=== PATIENT | female | born 1960 | race Caucasian/White ===

== ENCOUNTER → 2017-05-24 | Outpatient (CLI) | payer BC | LOC: LAB SHORT 16:45 | DX: N39.0 Urinary tract infection, site not specified (principal); R30.0 Dysuria | CPT/HCPCS: 87077; 87086; 87186 ==

== ENCOUNTER → 2017-11-19 | Outpatient (CLI) | payer BC | END | disposition home or self-care (01) | LOC: LAB 10:21 → LAB SHORT 10:21 | DX: N39.0 Urinary tract infection, site not specified (principal) | CPT/HCPCS: 87086 ==

== ENCOUNTER → 2020-02-16 | Outpatient (CLI) | payer BC, OTHER | END | disposition home or self-care (01) | LOC: LAB EV 15:04 → LAB SHORT 15:04 | DX: J06.9 Acute upper respiratory infection, unspecified (principal); Z20.828 Contact with and (suspected) exposure to other viral communicable diseases | CPT/HCPCS: U0003 ==

== ENCOUNTER → 2020-11-22 | Outpatient (CLI) | payer BC | END | disposition home or self-care (01) | LOC: LAB SHORT 08:10 | DX: D23.61 Other benign neoplasm of skin of right upper limb, including shoulder (principal) | CPT/HCPCS: 88305 ==

== ENCOUNTER 2022-07-17 11:38 | Day surgery (SDC) | payer BC ==
[~2022-07-17] VITALS: Ht 160 cm; Wt 42.9 kg
[2022-07-17] MEDS ORDERED: MELATONIN5 M1 PO (12:00)
[2022-07-17] MEDS ORDERED: ESCI20 PO (12:00)
== END 2022-07-17 14:24 | disposition home or self-care (01) ==
LOC: ORSCSDS 11:38
PROVIDERS: Student in an Organized Health Care Education/Training Program
PROC: 0DBH8ZX Excision of Cecum, Via Natural or Artificial Opening Endoscopic, Diagnostic (ICD-10-PCS; principal; 2022-07-17 13:15)
PROC: 0DBN8ZX Excision of Sigmoid Colon, Via Natural or Artificial Opening Endoscopic, Diagnostic (ICD-10-PCS; principal; 2022-07-17 13:15)
PROC: 0DBK8ZX Excision of Ascending Colon, Via Natural or Artificial Opening Endoscopic, Diagnostic (ICD-10-PCS; principal; 2022-07-17 13:15)
DX: Z12.11 Encounter for screening for malignant neoplasm of colon (principal); D12.2 Benign neoplasm of ascending colon; D12.0 Benign neoplasm of cecum; D12.5 Benign neoplasm of sigmoid colon; K63.5 Polyp of colon; K63.89 Other specified diseases of intestine; J45.909 Unspecified asthma, uncomplicated; Z79.899 Other long term (current) drug therapy
CPT/HCPCS: 88305; J2704; J7120

== ENCOUNTER 2024-06-12 09:19 | Day surgery (SDC) | payer BC ==
[~2024-06-12] VITALS: Ht 160 cm; Wt 45.9 kg
[~2024-06-12 09:19] MED LIST: ALEN70 PO; ESCI20 PO; HRT; MELATONIN5 M1 PO
[2024-06-12] MEDS ORDERED: Bupivacaine 0.5% W/EPI 1:200000 SDV 30 ML Vial ONE (09:42)
[2024-06-12] MEDS ORDERED: Lactated Ringer's 1,000 ML IV ONE ×2 (10:11→13:50)
[2024-06-12] MEDS ORDERED: CeFAZolin Sodium 2,000 MG VIAL ONE ×2 (10:28→11:48)
--- NOTE | 2024-06-12 10:32 | NUR ---
06/12/24 1032 SAI MCMAHAN SCD STOCKING TO E, PATIENT RESTING ON GURNEY WITH RAILS UP, CALL LIGHT IN REACH.
[2024-06-12] MEDS ORDERED: propofoL 20 ML IV ONE (11:31)
[2024-06-12] MEDS ORDERED: FentaNYL Citrate 50 MCG/ML 2 ML Injection ONE (11:31)
[2024-06-12] MEDS ORDERED: Ondansetron HCl 2 MG / ML 2ML Vial ONE (11:46)
[2024-06-12] MEDS ORDERED: Dexamethasone Sod Phos 10 MG/ML 1ML VIAL ONE (11:46)
[2024-06-12 13:00] VITALS: BP 107/74
[2024-06-12] MEDS ORDERED: OxyCODONE 5 mg/Acetamin 325 mg TABLET ONE (13:24)
--- NOTE | 2024-06-12 13:31 | NUR ---
06/12/24 1331 Shasta Cooley PT STATED THAT HER PAIN LEVEL IS AT A 4/10 DULL THROBBING PAIN. ITS NUMB. PT RECEIVED A PERCOCET PAIN PILL AT 1330. PT EDUCATION PROVIDED REGARDING MAKING SURE TO EAT BEFORE TAKING A PAIN PILL TO REDUCE THE RISK OF BEING NAUSEATED. PT VERBALLIZED UNDERSTANDING. WCTM. VSS.
== END 2024-06-12 13:40 | disposition home or self-care (01) ==
LOC: ORSCSDS 09:19
PROVIDERS: Podiatrist Foot & Ankle Surgery
PROC: 0SGJ04Z Fusion of Left Tarsal Joint with Internal Fixation Device, Open Approach (ICD-10-PCS; principal; 2024-06-12 10:45)
DX: M21.612 Bunion of left foot (principal); J45.909 Unspecified asthma, uncomplicated; Z79.899 Other long term (current) drug therapy
CPT/HCPCS: A9270; C1713; J0690; J1100; J2405; J2704; J3010; J7120

== ENCOUNTER 2025-02-19 07:35 | Day surgery (SDC) | payer BC ==
[~2025-02-19] VITALS: Ht 160 cm; Wt 44.8 kg
[~2025-02-19 07:35] MED LIST changes: +Bupivacaine 0.5% W/EPI 1:200000 SDV 30 ML Vial ONE
[2025-02-19] MEDS ORDERED: CeFAZolin Sodium 2,000 MG VIAL ONE (07:54)
[2025-02-19] MEDS ORDERED: FentaNYL Citrate 50 MCG/ML 2 ML Injection ONE ×2 (08:37→10:36)
[2025-02-19] MEDS ORDERED: Sugammadex Sodium 200 MG/2ML SDV (100 MG/ML) ONE (08:45)
[2025-02-19] MEDS ORDERED: Midazolam HCl 1MG / ML 2ML Vial ONE (09:15)
--- NOTE | 2025-02-19 09:57 | NUR ---
02/19/25 0957 Luz Mora PT COMFORTABLE DURING SEDATION PROCEESS
[2025-02-19 11:02] VITALS: BP 124/87
--- NOTE | 2025-02-19 12:04 | NUR ---
02/19/25 1204 Roverto Duran PT REPORTED 2/10, TOLERABLE, R FOOT PAIN UPON D/C. FLACC 0/10. SHE EXPRESSED READINESS TO RETURN HOME.
== END 2025-02-19 12:04 | disposition home or self-care (01) ==
LOC: ORSCSDS 07:35
PROVIDERS: Podiatrist Foot & Ankle Surgery
PROC: 0SGK04Z Fusion of Right Tarsometatarsal Joint with Internal Fixation Device, Open Approach (ICD-10-PCS; principal; 2025-02-19 09:00)
DX: M21.611 Bunion of right foot (principal); J45.909 Unspecified asthma, uncomplicated; F41.9 Anxiety disorder, unspecified; Z79.899 Other long term (current) drug therapy
CPT/HCPCS: A6253; A9270; C1713; J0690; J2250; J2704; J3010; J7120